=== PATIENT | female | born 1945 | race Caucasian/White ===

== ENCOUNTER 2017-01-24 09:11 | Observation (INO) | payer OTHER ==
[~2017-01-24] VITALS: Ht 157.5 cm; Wt 48.1 kg
--- NOTE | ~2017-01-24 | CATHLAB ---
[facility] [place] [address] INVASIVE PROCEDURE REPORT Name: IRMA MORA ROSA Room #: 304-P [facility] IN ..#: [id number] Admission: 01/24/17 Attend Phys: Rafa Cabezas, Discharge: 01/24/17 Date of : 47 Date of Service: 01/25/17 0812 Report #: [id number] THIS REPORT FOR: //name// CC: Hilario Schroeder PROCEDURE: Left heart coronary angiography. INDICATIONS: Shortness of breath, chest pain and coronary disease. DESCRIPTION OF PROCEDURE: The potential benefits and risks of the procedure were discussed at length with the patient who understood. Full written and informed consent was obtained. The patient was brought into the catheterization suite where a peripheral intervention and diagnostic procedure had been performed. The left groin sheath was used for this coronary diagnostic procedure. Left heart catheterization was performed with a 6-Turkmen angled pigtail catheter. A single plain ventriculogram was performed in the JAY view. Pullback gradients were measured across the aortic valve. Selective coronary angiography was performed with a 6-Turkmen left and right 4 cm Amelia coronary catheter. All diagnostic catheters were removed. FFR assessment of the proximal LAD was performed. The patient was premedicated with 2500 units of heparin. A JL4 launcher guide catheter was placed over a wire with its tip at the ostium of the left main. An FFR wire was placed down the LAD. Pre-adenosine infusion FFR was 0.98. After 3 minutes of adenosine infusion, the FFR was 0.89, suggesting no hemodynamic significance to this proximal LAD stenosis. All catheters removed. The left groin sheath was removed and manual pressure was applied. RESULTS: LEFT HEART HEMODYNAMICS: 1. Left ventricular systolic pressure of 140. 2. Left ventricular end diastolic pressure of 13. 3. Aortic valve, no gradient was present on pullback across the aortic valve, central aortic pressure 140/70. ANGIOGRAPHY: LEFT VENTRICULOGRAM: Ventriculography demonstrated normal global and regional left ventricular systolic function. Ejection fraction 65%. SELECTIVE CORONARY ANGIOGRAPHY: 1. Left main: Left main was large in caliber and normal. 2. Left anterior descending: Left anterior descending was moderately calcified proximally. There was a 50% to may be 60% stenosis involving the proximal portion of the LAD. This was not flow limiting by FFR assessment with adenosine [facility] [address] [place] [address] INVASIVE PROCEDURE REPORT Name: IRMA MORA [facility] Room #: 304-P [facility] IN [facility]#: [id number] Admission: 01/24/17 Attend Phys: Rafa Cabezas, Discharge: 01/24/17 Date of : 47 Date of Service: 01/25/17 0812 Report #: [id number] infusion (0.89). The remaining portion of the LAD was free of occlusive disease. The LAD gave rise to one small diagonal branch. 3. The circumflex was large and dominant. Circumflex gave rise to a mid vessel trifurcating marginal branch. This vessel exhibited minimal proximal plaquing. The distal circumflex gave rise to the posterior descending, which was angiographically normal. 4. The right coronary was small, nondominant and angiographically normal. SUMMARY: 1. Normal global and regional left ventricular systolic function. Ejection fraction 65%. 2. Normal left main. 3. Moderate proximal LAD disease, calcified. Not flow limiting by FFR assessment, following adenosine infusion 0.89. 4. Mild plaquing in a dominant circumflex. 5. The right coronary was small, nondominant and angiographically normal. <ELECTRONICALLY SIGNED> By: Rafa Cabezas MD, FACC 02/12/17 1122 0812 0859 Rafa Cabezas MD, FACC /nt
[2017-01-24] MEDS ORDERED: LOTREL 10-20 M1 EACH PO (09:41)
[2017-01-24] MEDS ORDERED: HYDROCODONE-APA1 TA1 PO (09:42)
[2017-01-24] MEDS ORDERED: ASPIR 8181 MG PO (09:42)
[2017-01-24] MEDS ORDERED: XANAX 0.25 MG0.25 MG PO (09:43)
[2017-01-24] MEDS ORDERED: [UNRECOGNIZED DRUG - REMARK] (09:44)
[2017-01-24] MEDS ORDERED: IBUPROFEN 400400 M2 PO (09:44)
[2017-01-24 09:53] VITALS: BP 125/66
[2017-01-24 09:55] LABS: HEMATOCRIT 41.6 % (37.0-47.0); HEMOGLOBIN 14.1 gm/dL (12.0-15.0); MCH 32.1 pg (26.0-34.0); MCHC 33.9 g/dL (28.0-37.0); MCV 94.5 fL (80.0-100.0); RBC 4.41 mil/uL (4.20-5.00); RDW 13.6 % (10.5-14.5); WBC 6.9 thou/uL (4.0-11.0)
[2017-01-24 10:03] LABS: CALCIUM 9.6 mg/dL (8.5-10.1); CREATININE 0.8 mg/dL (0.6-1.0); POTASSIUM 4.2 mmol/L (3.5-5.1)
[2017-01-24 10:08] LABS: PROTIME 9.4 Seconds (9.3-11.4)
[2017-01-24 16:30] VITALS: BP 131/66
[2017-01-24 17:00] VITALS: BP 134/61
[2017-01-24 18:00] VITALS: BP 122/68
[2017-01-24 21:16] VITALS: BP 122/68
[2017-02-11] MEDS ORDERED: ASPIR 8181 MG PO (15:02)
[2017-02-11] MEDS ORDERED: AMLODIPINE BESY10 MG PO (15:02)
[2017-02-11] MEDS ORDERED: LOSARTAN POTAS100 MG PO (15:02)
[2017-02-11] MEDS ORDERED: LOVASTATIN 20 M20 MG PO (15:02)
[2017-02-11] MEDS ORDERED: IBUPROFEN 800800 M1 PO (15:03)
[2017-02-11] MEDS ORDERED: VITAMINC500 PO (15:04)
[2017-02-11] MEDS ORDERED: NORCO 5-325 TA1 EACH PO (15:04)
[2017-02-11] MEDS ORDERED: VITAMIN E400 UNI6 PO (15:05)
== END 2017-01-24 21:50 | disposition home or self-care (01) ==
LOC: CATH 09:11 → 3N 16:42
PROVIDERS: Internal Medicine
DX: I25.10 Atherosclerotic heart disease of native coronary artery without angina pectoris (principal); I73.9 Peripheral vascular disease, unspecified; I10 Essential (primary) hypertension; I70.1 Atherosclerosis of renal artery; E78.00 Pure hypercholesterolemia, unspecified; F17.210 Nicotine dependence, cigarettes, uncomplicated; Z88.8 Allergy status to other drugs, medicaments and biological substances; Z90.710 Acquired absence of both cervix and uterus; Z90.49 Acquired absence of other specified parts of digestive tract
CPT/HCPCS: 10096

== ENCOUNTER 2017-02-13 05:10 | Inpatient (IN) | payer OTHER ==
[2017-02-12 10:58] LABS: HEMATOCRIT 41.2 % (37.0-47.0); HEMOGLOBIN 13.9 gm/dL (12.0-15.0); MCH 32.4 pg (26.0-34.0); MCHC 33.7 g/dL (28.0-37.0); MCV 96.1 fL (80.0-100.0); RBC 4.29 mil/uL (4.20-5.00); RDW 13.7 % (10.5-14.5); WBC 7.5 thou/uL (4.0-11.0)
[2017-02-12 11:02] LABS: URINE BILIRUBIN NEGATIVE (Negative); URINE BLOOD NEGATIVE (Negative); URINE COLOR YELLOW; URINE GLUCOSE-RANDOM* NEGATIVE (Negative); URINE KETONES NEGATIVE (Negative); URINE LEUKOCYTES-REFLEX TRACE (Negative); URINE PROTEIN (DIPSTICK) NEGATIVE (Negative); URINE UROBILINOGEN 0.2 E.U./dl (0.2-1.0)
[2017-02-12 11:11] LABS: ALBUMIN 4.1 g/dL (3.4-5.0); APTT 29.2 Seconds (24.5-32.8); CALCIUM 9.5 mg/dL (8.5-10.1); CREATININE 0.9 mg/dL (0.6-1.0); POTASSIUM 4.8 mmol/L (3.5-5.1); PROTIME 9.2 Seconds (9.3-11.4); TOTAL BILIRUBIN 0.5 mg/dL (<0.1-1.0); TOTAL PROTEIN 8.1 g/dL (6.4-8.2)
[2017-02-13] VITALS (10 sets, daily range): BP systolic 87–125; BP diastolic 50–64
[~2017-02-13] VITALS: Ht 157.5 cm; Wt 47.6 kg
--- NOTE | ~2017-02-13 | O ---
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 OPERATIVE PROCEDURE PERFORMED: Common femoral artery endarterectomy with bovine pericardial patch angioplasty closure. SURGEON: Romero Lam MD. COMBAT RIFLE CREWMEMBER: Lidia Yañez. ANESTHESIA: General. OPERATIVE INDICATIONS: The patient is a 71-year-old female with a known history of peripheral vascular occlusive disease. She has had multiple stents placed in her iliac system. She has recently presented with claudication involving the right lower extremity. This is mainly involving the cast. The patient was found to have a high-grade stenosis from the common femoral artery near the bifurcation and into the profunda femoris artery. She is admitted and brought to the operating room now for a common femoral artery endarterectomy. OPERATIVE SUMMARY: The patient brought to the operative room and placed on the OR table in supine position. After anesthesia was induced via the general endotracheal route and monitoring lines have been positioned, the patient was prepped and draped in sterile fashion with chlorhexidine. An oblique incision was made in the right groin over the femoral artery. The dissection was carried down through the subcutaneous tissues. We opened the contents of the femoral sheath. We dissected free the common and the superficial femoral artery. We were unable to locate the profunda femoris artery. We gave 15,000 units intravenous heparin and waited 3 minutes. We clamped the common femoral artery in the superficial femoral artery. An arteriotomy was made and extended up proximally and distally. The plaque was very large and inflammatory as well as calcified. We dissected the plaque from the vessel wall using a [place] elevator. Proximally, the plaque appeared to extend back a little further, so I dissected further back and we placed a clamp. We extended the arteriotomy back further, [facility] [address] [place] [address] OPERATIVE REPORT Name: IRMA MORA ROSA Room #: 204-P [facility] IN .R.#: [id number] Admission: 02/13/17 Attend Phys: Romero Lam MD Discharge: Date of : 47 Report #: [id number] but ran into the distal aspect of the stent. We were able to remove all plaque. Distally, there was good tapering of the vessels into the superficial femoral artery. Again, we did not find a profunda femoris artery. Next, all loose were debrided from the vessel wall. We then took a bovine pericardial patch and sewed it into place with a combination of 5-0 and 4-0 Prolene. We found 5-0 Prolene would not penetrate through the proximal stent material. Prior to completion, this site was flushed both antegrade and retrograde and it was irrigated with heparinized saline solution. The closure was completed and the site was de-aired by releasing the clamp on the superficial femoral artery and once the closure was completed, we opened up the common femoral artery clamp. There was a good Doppler signal in the superficial femoral artery in the wound. It was at least biphasic. Protamine was given to reverse the heparin. A couple of additional sutures were required proximally to control leak at the proximal site of the patch. Once adequate hemostasis was achieved, the wound was closed in multiple layers with absorbable suture. The procedure was completed. The patient was taken to the postanesthesia care unit in stable condition. Doppler signals were present at the posterior tibial and dorsalis pedis sites at the end of this operation. The operative blood loss was approximately 500 mL. There were no intraoperative complications noted. All sponge, needle counts were reported as correct. <ELECTRONICALLY SIGNED> By: Romero Lam MD 02/14/17 1826 1259 1411 Romero Lam MD /nt
--- NOTE | ~2017-02-13 | S ---
[facility] [place] [address] SURGICAL PATH RPT PROCEDURE Name: IRMA MORA ROSA Room #: 204-P DIS IN M.R.#: [id number] Admission: 02/13/17 Date of : 47 Discharge: 02/15/17 Report #: [id number] Path Case #: [id number] PATHOLOGY REPORT COLLECTION DATE: 02/13/2017 RECEIVED DATE: 02/13/2017 SUBMITTING PHYS: Dr. Romero Lam OTHER PHYS: Dr. Glen Curtis SPECIMEN(S) RECEIVED: A.Right femoral plaque * * * * * * * * * * * * FINAL DIAGNOSIS: A. Right femoral plaque, removal: - Calcific sclerosis, consistent with plaque. PATHOLOGIST: Kaylen Morales M.D. REPORT ELECTRONICALLY SIGNED BY: Kaylen Morales M.D. DATE/TIME: 02/15/2017 14:27 * * * * * * * * * * * * GROSS PATHOLOGY: The specimen is received in formalin, labeled "Irma Mora, right femoral plaque" is an irregular, reeves-yellow to pink red, calcified and friable portion were submitted as plaque measuring 3.5 x 1.1 x 0.5 cm. The cut surface is pink red to reeves-yellow, friable to chalky and calcified. No soft tissue is attached. No additional abnormalities are noted. Sections are submitted in cassette A1 after fixation and decalcification. (DIEGO; 02/13/2017) CLINICAL HISTORY: Not given INITIAL CPT CODE(S): A; 88481, 96229 Professional services performed by [facility] at [facility] [address], [place] [address] Technical services performed by [facility] at [address] [place] [id number]. [facility] [address] [place] [address] SURGICAL PATH RPT PROCEDURE Name: IRMA MORA ROSA Room #: 204-P DIS IN M.R.#: [id number] Admission: 02/13/17 Date of : 47 Discharge: 02/15/17 Report #: [id number] Path Case #: [id number] [facility] [address] [address] PHONE: [phone] DIRECTOR: Blanco Prince M.D. * * * END OF REPORT * * *
[~2017-02-13 05:10] MED LIST: AMLODIPINE BESY10 MG PO; ASPIR 8181 MG PO; HYDROCODONE-APA1 TA1 PO; IBUPROFEN 400400 M2 PO; IBUPROFEN 800800 M1 PO; LOSARTAN POTAS100 MG PO; LOTREL 10-20 M1 EACH PO; LOVASTATIN 20 M20 MG PO; NORCO 5-325 TA1 EACH PO; VITAMIN E400 UNI6 PO; VITAMINC500 PO; XANAX 0.25 MG0.25 MG PO; [UNRECOGNIZED DRUG - REMARK]
[2017-02-14] VITALS (16 sets, daily range): BP systolic 86–1063; BP diastolic 50–69
[2017-02-14 04:53] LABS: HEMATOCRIT 33.9 % (37.0-47.0)
[2017-02-14 04:59] LABS: HEMOGLOBIN 11.3 gm/dL (12.0-15.0)
[2017-02-14 05:09] LABS: CALCIUM 8.7 mg/dL (8.5-10.1); CREATININE 0.8 mg/dL (0.6-1.0); POTASSIUM 4.7 mmol/L (3.5-5.1)
[2017-02-15 03:48] VITALS: BP 100/51
[2017-02-15 08:00] VITALS: BP 103/58
[2017-02-15] MEDS ORDERED: COZAAR 25 MG TA25 M1 PO (11:05)
[2017-02-15] MEDS ORDERED: ASPIRIN325 PO (11:05)
[2017-02-15] MEDS ORDERED: HYDROCODON-ACE1 EAC7 PO (11:07)
[2017-02-15 11:42] VITALS: BP 103/58
== END 2017-02-15 12:30 | disposition home or self-care (01) | DRG 254 ==
LOC: ICU 05:10 → TBA 05:10 → PRE 06:45 → ICU 15:40 → 2N 02-14 12:12
PROVIDERS: Nurse Practitioner; Thoracic Surgery (Cardiothoracic Vascular Surgery)
PROC: 04CK0ZZ Extirpation of Matter from Right Femoral Artery, Open Approach (ICD-10-PCS; principal; 2017-02-13)
PROC: 04UK0JZ Supplement Right Femoral Artery with Synthetic Substitute, Open Approach (ICD-10-PCS; principal; 2017-02-13)
DX: I70.218 Atherosclerosis of native arteries of extremities with intermittent claudication, other extremity (principal); I10 Essential (primary) hypertension; I25.10 Atherosclerotic heart disease of native coronary artery without angina pectoris; M54.9 Dorsalgia, unspecified; I95.9 Hypotension, unspecified; G89.29 Other chronic pain; E78.5 Hyperlipidemia, unspecified; F17.210 Nicotine dependence, cigarettes, uncomplicated; F41.9 Anxiety disorder, unspecified; M48.00 Spinal stenosis, site unspecified; Z71.6 Tobacco abuse counseling; Z79.899 Other long term (current) drug therapy; Z95.820 Peripheral vascular angioplasty status with implants and grafts; Z88.0 Allergy status to penicillin; Z88.1 Allergy status to other antibiotic agents; Z88.8 Allergy status to other drugs, medicaments and biological substances; Z82.49 Family history of ischemic heart disease and other diseases of the circulatory system; Z80.8 Family history of malignant neoplasm of other organs or systems
CPT/HCPCS: 10078; 10081; 50010; 50101; 50417; 50455; 51301; 52279; 56524; 56525; 56526; 56527; 56639; 57093; 62110; 62900; 70005

== ENCOUNTER → 2017-03-19 | Outpatient (CLI) | payer OTHER ==
[~2017-03-19] MED LIST changes: +ASPIRIN325 PO; +COZAAR 25 MG TA25 M1 PO; +HYDROCODON-ACE1 EAC7 PO
== END ==
LOC: LABMALL 09:15
PROVIDERS: Nurse Practitioner
DX: I73.9 Peripheral vascular disease, unspecified (principal); M79.604 Pain in right leg; F17.200 Nicotine dependence, unspecified, uncomplicated

== ENCOUNTER 2017-04-10 05:18 | Inpatient (IN) | payer OTHER ==
[2017-04-05 09:28] LABS: URINE BILIRUBIN NEGATIVE (Negative); URINE BLOOD NEGATIVE (Negative); URINE COLOR YELLOW; URINE GLUCOSE-RANDOM* NEGATIVE (Negative); URINE KETONES NEGATIVE (Negative); URINE LEUKOCYTES-REFLEX NEGATIVE (Negative); URINE PROTEIN (DIPSTICK) NEGATIVE (Negative); URINE SPECIFIC GRAVITY <= 1.005 (1.003-1.035); URINE UROBILINOGEN 0.2 E.U./dl (0.2-1.0)
[2017-04-05 09:31] LABS: HEMATOCRIT 43.4 % (37.0-47.0); HEMOGLOBIN 14.8 gm/dL (12.0-15.0); MCH 32.6 pg (26.0-34.0); MCV 95.9 fL (80.0-100.0); RBC 4.53 mil/uL (4.20-5.00); RDW 13.4 % (10.5-14.5); WBC 7.3 thou/uL (4.0-11.0)
[2017-04-05 09:44] LABS: APTT 24.6 Seconds (24.5-32.8); PROTIME 9.4 Seconds (9.3-11.4)
[2017-04-05 10:21] LABS: ALBUMIN 4.6 g/dL (3.4-5.0); CREATININE 0.8 mg/dL (0.6-1.0); POTASSIUM 5.3 mmol/L (3.5-5.1); TOTAL BILIRUBIN 0.4 mg/dL (<0.1-1.0); TOTAL PROTEIN 8.1 g/dL (6.4-8.2)
[2017-04-10] VITALS (14 sets, daily range): BP systolic 94–151; BP diastolic 56–86
[~2017-04-10] VITALS: Ht 157.5 cm; Wt 48.5 kg
--- NOTE | ~2017-04-10 | O ---
[facility] [place] [address] OPERATIVE REPORT Name: IRMA MORA ROSA Room #: 207-P [facility] IN M.R.#: [id number] Admission: 04/10/17 Attend Phys: Romero Lam MD Discharge: 04/11/17 Date of : 47 Report #: [id number] THIS REPORT FOR: //name// CC: Glne Lam DATE OF SERVICE: 04/10/2017 PREOPERATIVE DIAGNOSIS: Right common femoral and superficial femoral artery stenosis, symptomatic with persistent claudication, the patient is status post prior common femoral endarterectomy approximately one month prior. POSTOPERATIVE DIAGNOSIS: Right common femoral and superficial femoral artery stenosis, symptomatic with persistent claudication, the patient is status post prior common femoral endarterectomy approximately one month prior. OPERATIVE PROCEDURE PERFORMED: Redo common femoral and superficial femoral artery endarterectomy with a patch. SURGEON: Romero Lam M.D. MEDICAL TRANSCRIPTION SUPERVISOR: ____. ANESTHESIA: General. OPERATIVE INDICATIONS: The patient is a 71-year-old female with a known history of tobacco use and lower extremity peripheral vascular occlusive disease. She has had multiple stents placed in the iliac arteries bilaterally. The patient had a high grade stenoses in the common femoral artery extending into the superficial femoral artery. These stenoses produced claudication at very short distance for her. I performed prior common femoral endarterectomy approximately one month ago. The patient has returned with her claudication improved, but not resolved. CTA demonstrated a persistent stenosis extending into the superficial femoral artery at the site of the profunda. She has returned now to the operating room for redo endarterectomy. OPERATIVE SUMMARY: The patient was brought to the operating room and placed on the OR table in supine position. After anesthesia was induced via the general endotracheal route and monitoring lines had been positioned, the patient was prepped and draped in sterile fashion with chlorhexidine. I reentered to the prior oblique femoral incision, dissected down through the subcutaneous tissues. We carefully dissected the prior site and dissected free the distal common, the superficial and the profunda femoral arteries. They were encircled with vascular tapes. Heparin was given to approximately 10,000 units. We waited 3 minutes. We clamped the common, superficial, and profunda femoral arteries. A common femoral arteriotomy was then made and extended into the superficial [address] [address] OPERATIVE REPORT Name: ABBYIRMA ROSA Room #: 207-P [facility] IN .R.#: [id number] Admission: 04/10/17 Attend Phys: Romero Lam MD Discharge: 04/11/17 Date of : 47 Report #: [id number] femoral artery. The profunda femoral arteries appeared free of significant plaque. We dissected the plaque from the vessel wall. We had to extend our arteriotomy distally and completed the extraction of plaque in the superficial femoral artery. Once all plaque was removed and all loose fronds were debrided from the vessel wall, we closed the vessel with a bovine pericardial patch using 5-0 Prolene suture. Prior to completing the closure, the site was irrigated with heparinized saline solution and was de-aired by releasing clamps on the profunda and superficial femoral arteries. Suture was tied. The common femoral clamp was removed to allow blood flow down to the leg again. Protamine was given to reverse the heparin and once appropriate hemostasis was achieved, the wound was closed in multiple layers with absorbable suture. The procedure was completed. The patient was taken to postanesthesia care unit in stable condition. The operative blood loss was approximately 50 mL. There was a palpable dorsalis pedis pulse noted in the dorsalis pedis site in the recovery room. <ELECTRONICALLY SIGNED> By: Romero Lam MD 04/15/17 0952 1300 1325 Romero Lam MD /nt
--- NOTE | ~2017-04-10 | S ---
[facility] [place] [address] SURGICAL PATH RPT PROCEDURE Name: IRMA MORA ROSA Room #: 207-P DIS IN M.R.#: [id number] Admission: 04/10/17 Date of : 47 Discharge: 04/11/17 Report #: [id number] Path Case #: [id number] PATHOLOGY REPORT COLLECTION DATE: 04/10/2017 RECEIVED DATE: 04/10/2017 SUBMITTING PHYS: Dr. Romero Lam OTHER PHYS: SPECIMEN(S) RECEIVED: A.Right femoral artery plaque * * * * * * * * * * * * FINAL DIAGNOSIS: "Right femoral artery plaque": - Atheromatous plaque with calcification and adjacent fibrosis. PATHOLOGIST: Romero Wang M.D. REPORT ELECTRONICALLY SIGNED BY: Romero Wang M.D. DATE/TIME: 04/12/2017 11:24 * * * * * * * * * * * * GROSS PATHOLOGY: The specimen is received in formalin, labeled "Irma Mora and right femoral artery plaque", are three of iniguez-white previously opened tubular structure with marked calcification ranging from 1.0 up to 1.6 cm and measuring 1.6 x 1.2 x 0.5 cm in aggregate, public health representative section in A1 after decalcification. (SWS; 04/10/2017) CLINICAL HISTORY: Claudication INITIAL CPT CODE(S): A; 53084 Professional services performed by [facility] at [facility] [address], [place] [address] Technical services performed by [facility] at [address] [place] [address], [address] [address]. [facility] [address] [place] [address] SURGICAL PATH RPT PROCEDURE Name: IRMA MORA ROSA Room #: 207-P DIS IN M.R.#: [id number] Admission: 04/10/17 Date of : 47 Discharge: 04/11/17 Report #: [id number] Path Case #: [id number] [address] PHONE: [phone] DIRECTOR: Blanco Prince M.D. * * * END OF REPORT * * *
[~2017-04-10 05:18] MED LIST changes: +COZAAR 50 MG TA50 M2 PO; +HYDROCODONE-AP1 EA11 PO; +VITAMIN E400 UNIT PO
[2017-04-11] VITALS: BP 103/59
[2017-04-11 00:15] VITALS: BP 103/59
[2017-04-11 03:14] LABS: HEMATOCRIT 35.2 % (37.0-47.0); HEMOGLOBIN 11.7 gm/dL (12.0-15.0); MCH 32.2 pg (26.0-34.0); MCHC 33.4 g/dL (28.0-37.0); MCV 96.5 fL (80.0-100.0); RBC 3.65 mil/uL (4.20-5.00); RDW 12.9 % (10.5-14.5)
[2017-04-11 03:21] LABS: CALCIUM 8.8 mg/dL (8.5-10.1); CREATININE 0.8 mg/dL (0.6-1.0); POTASSIUM 4.6 mmol/L (3.5-5.1)
[2017-04-11 04:12] VITALS: BP 103/59
[2017-04-11 07:38] VITALS: BP 105/67
[2017-04-11 09:10] VITALS: BP 105/67
[2017-04-11 10:58] VITALS: BP 105/67
== END 2017-04-11 11:30 | disposition home or self-care (01) | DRG 253 ==
LOC: TBA 05:18 → 2N 05:18 → PRE 08:45 → 2N 13:36 → PRE 13:56 → ENTRNSPT 04-11 11:16 → 2N 04-11 11:30
PROVIDERS: Nurse Practitioner; Thoracic Surgery (Cardiothoracic Vascular Surgery)
PROC: 04UK0JZ Supplement Right Femoral Artery with Synthetic Substitute, Open Approach (ICD-10-PCS; principal; 2017-04-10)
PROC: 04CK0ZZ Extirpation of Matter from Right Femoral Artery, Open Approach (ICD-10-PCS; principal; 2017-04-10)
DX: I70.201 Unspecified atherosclerosis of native arteries of extremities, right leg (principal); D62 Acute posthemorrhagic anemia; I10 Essential (primary) hypertension; F17.210 Nicotine dependence, cigarettes, uncomplicated; E78.00 Pure hypercholesterolemia, unspecified; E78.5 Hyperlipidemia, unspecified; G89.29 Other chronic pain; M54.9 Dorsalgia, unspecified; Z88.1 Allergy status to other antibiotic agents; Z88.0 Allergy status to penicillin; Z79.899 Other long term (current) drug therapy; Z79.82 Long term (current) use of aspirin; Z23 Encounter for immunization; Z88.8 Allergy status to other drugs, medicaments and biological substances
CPT/HCPCS: 10081; 50010; 50101; 50386; 50417; 51301; 52279; 56524; 56526; 56527; 56639; 57093; 62110; 62900; 70005

== ENCOUNTER → 2018-10-24 | Outpatient (CLI) | payer OTHER ==
[~2018-10-24] VITALS: Ht 157.5 cm; Wt 49.9 kg
[~2018-10-24] MED LIST changes: +COZAAR 50 MG TA50 M1 PO; -COZAAR 50 MG TA50 M2 PO; +GABAPENTIN100 MG PO; +KEFLEX250 MG PO; +MEDROLDOSEPACK PO; +NEURONTIN 300300 M1 PO
[2018-10-24 09:22] VITALS: BP 120/74
--- NOTE | 2018-10-24 09:48 | NUR ---
Pain Clinic Assessment: 1. History of Osteoarthritis: RIGHT THUMB History of Rheumatoid Arthritis: NONE 2. Height: 5 ft. 2 in. 157.5 cm. Weight: 110.0 lb. oz. 49.896 kg. Patient's BMI: 20.1 3. Vital Signs: BP: 120/74 Pulse: 88 Resp: 16 Temp: 02 Sat: 97 ECG Mon: 4. Pain Intensity: 10 5. Fall Risk: Dizziness: N Needs help standing or walking: N Fallen in the last 3 months: N Fall risk comments: 6. Patient on Blood Thinner: None 7. History of Hypertension: Y 8. Opioid Therapy greater than 6 weeks: Opiate Contract Signed: 9. Risk Assessment Tool Provided: 0 10. Functional Assessment Tool: 66/70 11. Recreational Drug Use: Never Drug Type: Tobacco Use: Current Every Day Smoker Tobacco Type: Cigarettes Amount or Packs/day: 1 How Many Years: 30 Alcohol Use: Yes Frequency: Daily Quant: 2
--- NOTE | 2018-10-24 09:48 | NUR ---
Document wound assessment on appropriate Wound Pressure, Monitor intervention!
== END ==
LOC: PAIN 06:39
DX: G89.29 Other chronic pain (principal); M25.511 Pain in right shoulder; M25.512 Pain in left shoulder; M54.5 Low back pain; M54.6 Pain in thoracic spine; M54.2 Cervicalgia; M79.651 Pain in right thigh; F17.210 Nicotine dependence, cigarettes, uncomplicated; Z79.891 Long term (current) use of opiate analgesic

== ENCOUNTER → 2019-08-11 | Outpatient (CLI) | payer OTHER | LOC: SJCVC 13:03 | DX: R94.31 Abnormal electrocardiogram [ECG] [EKG] (principal); I25.10 Atherosclerotic heart disease of native coronary artery without angina pectoris; I10 Essential (primary) hypertension; I73.9 Peripheral vascular disease, unspecified; G89.29 Other chronic pain; E78.00 Pure hypercholesterolemia, unspecified; F17.200 Nicotine dependence, unspecified, uncomplicated; Z90.49 Acquired absence of other specified parts of digestive tract; Z90.710 Acquired absence of both cervix and uterus; Z79.899 Other long term (current) drug therapy ==

== ENCOUNTER → 2020-02-09 | Outpatient (CLI) | payer OTHER | LOC: SJCVC 13:52 | PROVIDERS: ATTEND Internal Medicine | DX: I25.10 Atherosclerotic heart disease of native coronary artery without angina pectoris (principal); I10 Essential (primary) hypertension; E78.5 Hyperlipidemia, unspecified; F17.200 Nicotine dependence, unspecified, uncomplicated; I73.9 Peripheral vascular disease, unspecified; M48.062 Spinal stenosis, lumbar region with neurogenic claudication; F17.210 Nicotine dependence, cigarettes, uncomplicated; E78.00 Pure hypercholesterolemia, unspecified; Z79.899 Other long term (current) drug therapy; Z82.49 Family history of ischemic heart disease and other diseases of the circulatory system ==

== ENCOUNTER → 2020-03-04 | Outpatient (CLI) | payer OTHER | LOC: SJCVCIMAG 08:41 | PROVIDERS: ATTEND Internal Medicine | DX: I70.201 Unspecified atherosclerosis of native arteries of extremities, right leg (principal); F17.200 Nicotine dependence, unspecified, uncomplicated; Z98.890 Other specified postprocedural states; Z95.820 Peripheral vascular angioplasty status with implants and grafts ==

== ENCOUNTER → 2020-09-06 | Outpatient (CLI) | payer OTHER | LOC: SJCVC 10:38 | PROVIDERS: ATTEND Internal Medicine | DX: R94.31 Abnormal electrocardiogram [ECG] [EKG] (principal); I25.10 Atherosclerotic heart disease of native coronary artery without angina pectoris; E78.5 Hyperlipidemia, unspecified; I10 Essential (primary) hypertension; I70.211 Atherosclerosis of native arteries of extremities with intermittent claudication, right leg; M48.062 Spinal stenosis, lumbar region with neurogenic claudication; F17.210 Nicotine dependence, cigarettes, uncomplicated; Z72.89 Other problems related to lifestyle; Z88.1 Allergy status to other antibiotic agents; Z79.899 Other long term (current) drug therapy; Z79.82 Long term (current) use of aspirin ==

== ENCOUNTER → 2021-03-10 | Outpatient (CLI) | payer OTHER | LOC: SJCVCIMAG 07:22 | PROVIDERS: ATTEND Internal Medicine | DX: I70.202 Unspecified atherosclerosis of native arteries of extremities, left leg (principal); R94.31 Abnormal electrocardiogram [ECG] [EKG]; I25.10 Atherosclerotic heart disease of native coronary artery without angina pectoris; E78.5 Hyperlipidemia, unspecified; I10 Essential (primary) hypertension; F17.200 Nicotine dependence, unspecified, uncomplicated; M48.062 Spinal stenosis, lumbar region with neurogenic claudication; E78.00 Pure hypercholesterolemia, unspecified; I70.211 Atherosclerosis of native arteries of extremities with intermittent claudication, right leg; Z72.89 Other problems related to lifestyle; Z79.82 Long term (current) use of aspirin; Z79.899 Other long term (current) drug therapy; Z79.891 Long term (current) use of opiate analgesic; Z88.8 Allergy status to other drugs, medicaments and biological substances ==